=== PATIENT | female | born 1940 | race Caucasian/White ===

== ENCOUNTER → 2017-02-07 | Outpatient (CLI) | payer MEDICARE, MEDICAID | LOC: OD 10:44 | PROVIDERS: ATTEND Internal Medicine | DX: R60.0 Localized edema (principal); R06.00 Dyspnea, unspecified; I35.8 Other nonrheumatic aortic valve disorders; I10 Essential (primary) hypertension; R01.1 Cardiac murmur, unspecified; I34.0 Nonrheumatic mitral (valve) insufficiency; E66.9 Obesity, unspecified; Z79.899 Other long term (current) drug therapy | CPT/HCPCS: 36415; 83880 ==

== ENCOUNTER → 2017-02-18 | Outpatient (CLI) | payer MEDICARE, MEDICAID ==
--- NOTE | 2017-02-18 12:09 | XCELERA REPORT ---
[address] [address] Lower Extremity Venous Evaluation Name: DAVID LEAVITT Age: 77 yrs Gender: Female : 1940 Patient Status: Outpatient Patient Location: Study Date: 02/18/2017 09:16 AM Procedure: Color flow and duplex imaging bilaterally of the veins of the lower extremities as well as the Common Femoral veins. Reason For Study: DVT Z86.718 Ordering Physician: NEEMA RAMIREZ Performed By: Pérez Shields Right Sided Venous Evaluation Normal vessel filling wall to wall, compression and augmentation as well as Colour flow down to the infrageniculate veins. Left Sided Venous Evaluation Normal vessel filling wall to wall, compression and augmentation as well as Colour flow down to the infrageniculate veins. Interpretation Summary No duplex evidence of DVT or obstruction in the bilateral lower extremities. : NEEMA RAMIREZ > Lux De Leon
== END ==
LOC: SP 08:51
PROVIDERS: ATTEND Specialist
DX: Z86.718 Personal history of other venous thrombosis and embolism (principal)
CPT/HCPCS: 93970

== ENCOUNTER → 2017-04-20 | Outpatient (CLI) | payer MEDICARE, MEDICAID ==
[2017-04-20 09:14] LABS: ARTERIAL BLOOD O2 SATURATION 95.9 % (94-98)
== END ==
LOC: OD 08:04
PROVIDERS: ATTEND Internal Medicine Pulmonary Disease
DX: J96.11 Chronic respiratory failure with hypoxia (principal)
CPT/HCPCS: 36600; 82803

== ENCOUNTER 2017-09-18 07:03 | Day surgery (SDC) | payer MEDICARE, MEDICAID ==
[~2017-09-18 07:03] MED LIST: KETOROLAC TROMETHAMINE 0.45% 4 DROP/0.4 ML DROPERETTE OS PRN
[2017-09-18] MEDS ORDERED: EPINEPHRINE INJ/PF 1 MG/1 ML AMPULE ONE (07:15)
[2017-09-18] MEDS ORDERED: TOBRAMYCIN SULFATE/DEXAMETH OPH OINTMENT 3.5 GM ONE (07:16)
[2017-09-18] MEDS ORDERED: CHONDR SU A NA/HYALUR INTRAOC KIT (SURGICARE) ONE (07:16)
[2017-09-18] MEDS ORDERED: LIDOCAINE 1% INJ-PF (10 MG/ML) 30 ML SDV ONE (07:16)
[2017-09-18] MEDS: CYCLOPENTOLATE 0.2%/PHENYLEPHRINE 1% OPH SOLN 2 ML OS PRN ×3 (07:46→08:06)
[2017-09-18] MEDS: TROPICAMIDE 1% OPH SOLN 3 ML OS PRN ×3 (07:46→08:06)
[2017-09-18] MEDS: BESIFLOXACIN HCL 0.6% OPH SUSP 5 ML BOTTLE OS PRN ×3 (07:46→08:31)
[2017-09-18] MEDS: TETRACAINE HCL 0.5% OPH SOLN 0.6 ML DROPERETTE OS PRN ×3 (07:47→08:20)
[2017-09-18] MEDS ORDERED: MIDAZOLAM 2 MG/2 ML INJ ONE (07:58)
[2017-09-18] MEDS ORDERED: FENTANYL CITRATE INJ/PF 100 MCG/2 ML AMPUL ONE (07:59)
== END 2017-09-18 09:15 | disposition home or self-care (01) ==
LOC: SC 07:03
PROVIDERS: ATTEND Ophthalmology
PROC: 08RK3JZ Replacement of Left Lens with Synthetic Substitute, Percutaneous Approach (ICD-10-PCS; principal; 2017-09-18 08:15)
DX: H25.12 Age-related nuclear cataract, left eye (principal); I10 Essential (primary) hypertension; J43.9 Emphysema, unspecified; Z79.899 Other long term (current) drug therapy
CPT/HCPCS: 66984; V2632; J2250; J3490 ×3; A9270; J0171; J3010; 142

== ENCOUNTER → 2018-03-31 | Outpatient (CLI) | payer MEDICARE, MEDICAID ==
[2018-04-01 16:39] LABS: CYTOPLASMIC (C-ANCA) <1:20 titer (Neg:<1:20)
[2018-04-02 07:48] LABS: ATYPICAL PANCA <1:20 titer (Neg:<1:20); PERINUCLEAR (P-ANCA) <1:20 titer (Neg:<1:20)
[2018-04-02 11:40] LABS: ANTICHROMATIN AB <0.2 AI (0.0-0.9); CENTROMERE B AB <0.2 AI (0.0-0.9); JO-1 ANTIBODY (ANACOMP) <0.2 AI (0.0-0.9); RNP AB <0.2 AI (0.0-0.9); SCLERODERMA-70 ANTIBODIES <0.2 AI (0.0-0.9); SJOGREN'S ANTI-SS-B AB <0.2 AI (0.0-0.9); SJOGREN'S SS-A ANTIBODY <0.2 AI (0.0-0.9); SMITH AB ANA <0.2 AI (0.0-0.9)
[2018-04-02 11:43] LABS: DNA DOUBLE STRAND ANTIBODY ANA <1 IU/mL (0-9)
== END ==
LOC: OD 11:17
PROVIDERS: ATTEND Physician Assistant
DX: R06.00 Dyspnea, unspecified (principal)
CPT/HCPCS: 36415; 86021; 86225; 86235; 86430

== ENCOUNTER 2018-07-21 05:18 | Emergency (ER) | payer MEDICARE, MEDICAID ==
--- NOTE | 2018-07-21 06:00 | RADIOLOGY REPORT (SQ) ---
EXAM DESCRIPTION: XR CHEST 1 VIEW COMPLETED DATE/TME: 07/21/2018 05:21 CLINICAL HISTORY: 78 years, Female, cp COMPARISON: None. NUMBER OF VIEWS: One TECHNIQUE: AP view of the chest LIMITATIONS: None. FINDINGS: Lungs are clear. The heart is normal in size. There is no pneumothorax or pleural effusion. There is no acute fracture IMPRESSION: No acute cardiopulmonary abnormality 2010 [employer]- All Rights Reserved
[2018-07-21 06:54] LABS: ABSOLUTE LYMPHOCYTES (AUTO) 0.8 10^3/uL (0.5-4.7); ABSOLUTE MONOCYTES (AUTO) 0.4 10^3/uL (0.1-1.4); ABSOLUTE NEUT (AUTO) 6.7 10^3/uL (1.7-8.2); BASOPHILS % (AUTO) 0.3 % (0-2); EOSINOPHILS % (AUTO) 0.1 % (0-6); HEMATOCRIT 42.1 % (36.0-47.0); LYMPHOCYTES % (AUTO) 10.4 % (13-45); MEAN CORPUSCULAR HEMOGLOBIN 30.5 pg (27.0-33.4); MEAN CORPUSCULAR HGB CONC 33.3 g/dL (32.0-36.0); MEAN CORPUSCULAR VOLUME 92 fl (80-97); MONOCYTES % (AUTO) 4.6 % (3-13); PLATELET COUNT 204 10^3/uL (150-450); RED BLOOD COUNT 4.59 10^6/uL (3.72-5.28); SEGMENTED NEUTROPHILS % (AUTO) 84.6 % (42-78); TOTAL CELLS COUNTED % (AUTO) 100 %; WHITE BLOOD COUNT 7.9 10^3/uL (4.0-10.5)
[2018-07-21] MEDS ORDERED: METOCLOPRAMIDE HCL ORAL SOLN 10 MG/10 ML UDCUP PO ONE (06:57)
[2018-07-21] MEDS ORDERED: MAG HYDROX/AL HYDROX/SIMETH SUSP 30 ML UDCUP PO ONE (06:57)
[2018-07-21] MEDS ORDERED: LIDOCAINE 2% VISCOUS SOLN 20 ML UDCUP PO ONE (06:57)
--- NOTE | 2018-07-21 07:01 | ER Document Report ---
ED Cardiac - General Chief Complaint: Chest Pain Stated Complaint: CHEST PAIN Time Seen by Provider: 07/21/18 06:08 Notes: 78-year-old female presents emerged from some epigastric discomfort that started yesterday. She describes as like a dull burning aching discomfort in her epigastrium that radiates up into her chest. She states she was eating yesterday at about 2 PM and that is when it began she denies shortness of breath had a little bit of nausea had one episode of emesis. Denied any diaphoresis. Denied any headache or blurred vision denied extremity numbness tingling or weakness. Denies any diarrhea or constipation. Nothing seemed to make it better or worse. TRAVEL OUTSIDE OF THE [place] IN LAST 30 DAYS: No - Related Data Allergies/Adverse Reactions: acetaminophen [From Percocet] Allergy (Verified 09/18/17 07:56) cephalexin monohydrate [From Keflex] Allergy (Verified 09/18/17 07:56) oxycodone HCl [From Percocet] Allergy (Verified 09/18/17 07:56) Past Medical History - Social History Smoking Status: Never Smoker Family History: Reviewed & Not Pertinent Patient has suicidal ideation: No Patient has homicidal ideation: No - Past Medical History Cardiac Medical History: Reports: Hx Hypertension Denies: Hx Heart Attack Pulmonary Medical History: Reports: Hx Asthma Neurological Medical History: Denies: Hx Cerebrovascular Accident, Hx Seizures Renal/ Medical History: Denies: Hx Peritoneal Dialysis GI Medical History: Denies: Hx Hepatitis, Hx Hiatal Hernia, Hx Ulcer Infectious Medical History: Denies: Hx Hepatitis Past Surgical History: Reports: Hx Appendectomy, Hx Gynecologic Surgery, Hx Tonsillectomy, Hx Tubal Ligation. Denies: Hx Mastectomy, Hx Open Heart Surgery , Hx Pacemaker - Immunizations Hx Diphtheria, Pertussis, Tetanus Vaccination: Yes - over 10 years ago Review of Systems - Review of Systems Gastrointestinal: Nausea, Vomiting. denies: Diarrhea, Constipation Musculoskeletal: denies: Back pain Skin: denies: Other -: Yes All other systems reviewed and negative Physical Exam - Vital signs Vitals: Pulse Ox 96 07/21/18 05:40 - Notes Notes: GENERAL_APPEARANCE: well_nourished, alert, cooperative VITALS: reviewed, see vital signs table. HEAD: no_swelling\tenderness on the head. EYES: PERRL, EOMI, conjunctiva_clear. NOSE: no_nasal_discharge. MOUTH: (-)decreased moisture. THROAT: no_tonsilar_inflammation, no_airway_obstruction. no_lymphadenopathy NECK: supple, no_neck_tenderness, (-)thyromegaly. BACK: no_back_tenderness. CHEST_WALL: no_chest_tenderness. LUNGS: no_wheezing, no_rales, no_rhonchi, (-)accessory muscle use, good air exchange bilateral. HEART: normal_rate, normal_rhythm, slight systolic ejection murmur ABDOMEN: normal_BS, soft, epigastric_abd_tenderness, (-)guarding, (-)rebound, no_organomegaly, no_abd_masses. EXTREMITIES: good pulses in all_extremities, no_swelling\tenderness in the extremities, 1+_edema. SKIN: warm, dry, good_color, no_rash. MENTAL_STATUS: speech_clear, oriented_X_3, normal_affect, responds_ appropriately to questions. Course - Re-evaluation Re-evalutation: 07/21/18 07:00 78-year-old female presents with some epigastric discomfort. It does radiate up into her chest we will give her a GI cocktail will get a EKG we will check some enzymes. She has no history of heart disease. The patient stated it began after she was eating yesterday she does not have a sensation of something was stuck in her throat. Denies calf pain or leg swelling. Denies fever chills cough or sore throat. Denies rash hematuria or dysuria 07/21/18 07:01 We will work the patient up for cardiac withdrawal lipase in case this is pancreatitis this may just be reflux type symptoms. 07/21/18 11:41 Patient has had serial troponins 4 hours apart are negative. Patient did feel better after GI cocktail. I think this is likely GI related. Patient does have some risk factors but my suspicion is low at this time I spoke with her about this we have had social service investigate this she is littered with bedbugs. The patient will be discharged back home and we have engage social sciences department chair. - Vital Signs Vital signs: Temp Pulse Resp BP Pulse Ox 97.7 F 20 156/74 H 98 07/21/18 06:34 07/21/18 11:01 07/21/18 11:01 07/21/18 11:01 - Laboratory Result Diagrams: 07/21/18 06:30 07/21/18 06:30 Laboratory results interpreted by me: 07/21/18 07/21/18 06:30 06:30 Seg Neutrophils % 84.6 H Lymphocytes % 10.4 L BUN 22 H Glucose 153 H - EKG Interpretation by Me EKG shows normal: Sinus rhythm Rate: Normal Rhythm: NSR When compared to previous EKG there are: No significant change Discharge - Discharge Clinical Impression: GERD with esophagitis Condition: Good Disposition: HOME, SELF-CARE Instructions: Reflux Disease (GERD) ([facility]) Additional Instructions: Please limit to your diet and non-spicy foods. Please follow-up with your doctor for further care as we have discussed no test is ever 100% if he began having more difficulty more problems please return to the ER immediately and let us reevaluate you. Prescriptions: Pantoprazole Sodium [Protonix] 40 mg PO DAILY #30 tablet. Sucralfate [Carafate 1 gm Tablet] 1 gm PO ACHS #30 tablet Referrals: JANESSA STEVENS, PAAnupama [Primary Care Provider] - Follow up as needed
[2018-07-21 07:05] LABS: ALANINE AMINOTRANSFERASE 22 U/L (9-52); ALKALINE PHOSPHATASE 105 U/L (38-126); ANION GAP 12 (5-19); ASPARTATE AMINO TRANSFERASE 25 U/L (14-36); BILIRUBIN,DIRECT 0.4 mg/dL (0.0-0.4); BLOOD UREA NITROGEN 22 mg/dL (7-20); CARBON DIOXIDE 26 mmol/L (22-30); CHLORIDE 100 mmol/L (98-107); CREATINE KINASE 30 U/L (30-135); GLUCOSE 153 mg/dL (75-110); POTASSIUM 4.1 mmol/L (3.6-5.0); SODIUM 137.6 mmol/L (137-145); TOTAL PROTEIN 7.9 g/dL (6.3-8.2)
[2018-07-21 07:20] LABS: TROPONIN I < 0.012 ng/mL
--- NOTE | 2018-07-21 07:53 | EKG REPORT ---
SEVERITY:- BORDERLINE ECG - SINUS RHYTHM PROBABLE LEFT ATRIAL ABNORMALITY BORDERLINE T ABNORMALITIES, DIFFUSE LEADS : Confirmed by: Raad Crockett MD 21-Jul-2018 07:52:35
[2018-07-21 13:56] VITALS: BP 156/74
== END 2018-07-21 12:30 | disposition home or self-care (01) ==
LOC: ER 05:18
DX: K21.0 Gastro-esophageal reflux disease with esophagitis (principal); R07.9 Chest pain, unspecified; R10.13 Epigastric pain; I10 Essential (primary) hypertension; Z88.6 Allergy status to analgesic agent; Z98.51 Tubal ligation status
CPT/HCPCS: 93005; 99285; 36415; 82553; 82550; 83690; 85025; 80053; 84484; 71045; 93010; J3490; A9270

== ENCOUNTER 2018-10-09 08:36 | Day surgery (SDC) | payer MEDICARE, MEDICAID ==
[2018-10-06 10:03] LABS: HEMATOCRIT 40.8 % (36.0-47.0); HEMOGLOBIN 13.8 g/dL (12.0-15.5); MEAN CORPUSCULAR HEMOGLOBIN 30.5 pg (27.0-33.4); MEAN CORPUSCULAR HGB CONC 33.8 g/dL (32.0-36.0); MEAN CORPUSCULAR VOLUME 90 fl (80-97); PLATELET COUNT 226 10^3/uL (150-450); RED BLOOD COUNT 4.51 10^6/uL (3.72-5.28); RED CELL DISTRIBUTION WIDTH 13.9 % (11.5-14.0); WHITE BLOOD COUNT 5.1 10^3/uL (4.0-10.5)
[2018-10-06 10:26] LABS: ALANINE AMINOTRANSFERASE 13 U/L (9-52); ALKALINE PHOSPHATASE 91 U/L (38-126); AMYLASE 66 U/L (30-110); ANION GAP 9 (5-19); ASPARTATE AMINO TRANSFERASE 19 U/L (14-36); BILIRUBIN,DIRECT 0.2 mg/dL (0.0-0.4); BILIRUBIN,TOTAL 0.6 mg/dL (0.2-1.3); BLOOD UREA NITROGEN 32 mg/dL (7-20); CALCIUM 9.6 mg/dL (8.4-10.2); CARBON DIOXIDE 29 mmol/L (22-30); CHLORIDE 104 mmol/L (98-107); GLUCOSE 96 mg/dL (75-110); POTASSIUM 4.2 mmol/L (3.6-5.0); TOTAL PROTEIN 7.8 g/dL (6.3-8.2)
--- NOTE | 2018-10-06 10:51 | RADIOLOGY REPORT (SQ) ---
EXAM DESCRIPTION: CHEST PA/LATERAL COMPLETED DATE/TIME: 10/06/2018 10:08 am REASON FOR STUDY: PRE-OP COMPARISON: 07/21/2018. EXAM PARAMETERS: NUMBER OF VIEWS: two views TECHNIQUE: Digital Frontal and Lateral radiographic views of the chest acquired. RADIATION DOSE: NA LIMITATIONS: none FINDINGS: LUNGS AND PLEURA: No opacities, masses or pneumothorax. No pleural effusion. MEDIASTINUM AND HILAR STRUCTURES: No masses or contour abnormalities. HEART AND VASCULAR STRUCTURES: Heart normal size. No evidence for failure. BONES: No acute findings. HARDWARE: None in the chest. OTHER: No other significant finding. IMPRESSION: NO SIGNIFICANT RADIOGRAPHIC FINDING IN THE CHEST. TECHNICAL DOCUMENTATION: JOB ID: [id number] [employer]- All Rights Reserved Reading location - IP/workstation name: [email or web address]
--- NOTE | 2018-10-06 16:35 | EKG REPORT ---
SEVERITY:- NORMAL ECG - SINUS RHYTHM : Confirmed by: Sandra Hays MD 06-Oct-2018 16:34:14
[~2018-10-09 08:36] MED LIST changes: +ACETAMINOPHEN 1,000 MG/100 ML RTUPB IV ONE; +ACETAMINOPHEN 325 MG TABLET PO PRN; +CEFAZOLIN 1 GM/D5W RTU 1 GM/50 ML RTUPB IV PRN; +CLINDAMYCIN 900 MG/D5W RTU 900 MG/50 ML RTUPB IV PRN; +FENTANYL CITRATE INJ/PF 100 MCG/2 ML AMPUL ONE; -KETOROLAC TROMETHAMINE 0.45% 4 DROP/0.4 ML DROPERETTE OS PRN; +LACTATED RINGERS 1000 ML IV PRN; +LIDOCAINE 0.5% INJ-PF (5 MG/ML) 50 ML SDV SUBCUT PRN; +MIDAZOLAM 2 MG/2 ML INJ ONE; +PROPOFOL INJ 200 MG/20 ML VIAL IV ONE
[2018-10-09] MEDS ORDERED: BUPIVACAINE HCL 0.25% /EPINEPHRINE INJ/PF 30 ML SDV ONE (08:37)
[2018-10-09] MEDS ORDERED: CLINDAMYCIN 900 MG/D5W RTU 900 MG/50 ML RTUPB IV ONE (09:01)
[2018-10-09] MEDS ORDERED: MORPHINE SULFATE 10 MG/ML INJ IV PRN ×2 (10:29→17:49)
[2018-10-09] MEDS ORDERED: MEPERIDINE HCL/PF INJ 25 MG/1 ML DISP.SYRIN IV PRN (10:29)
[2018-10-09] MEDS ORDERED: DIPHENHYDRAMINE HCL 50 MG/ML VIAL IV PRN (10:29)
[2018-10-09] MEDS ORDERED: PROMETHAZINE HCL INJ 25 MG/1 ML VIAL IV PRN (10:29)
[2018-10-09] MEDS ORDERED: FENTANYL CITRATE INJ/PF 100 MCG/2 ML AMPUL IV PRN ×3 (10:29)
--- NOTE | 2018-10-09 12:03 | Operative Report ---
Operative Report DATE OF SURGERY: 10/09/18 - lap sven Operative Report: Brought to the operating room in awake and alert in stable condition placed in the upper table supine position and induced under general anesthesia and intubated There is needle was placed through the umbilicus and the abdomen was insufflated with 6 L of CO2 gas Umbilical incision was made with a 15 blade and a 10 mm port placed into the infraumbilical incision Abdominal visualization revealed no evidence of a varies needle or trocar injury . The gallbladder was markedly chronically inflamed large area of omentum that was adhesed to the gallbladder and the gallbladder fundus itself was adhesed to the duodenum upon dissecting away the duodenum we noted we got into the loculated area of purulent fluid. Suctioned dry. 5 mm ports were placed in under direct vision. Bladder was placed under traction and the hepatoduodenal ligament was isolated the duct and cystic artery were both dissected from the hepatoduodenal ligament and the cystic artery was doubly clipped on the stay side and one specimen side and divided the cystic artery was just divided as off the neck of the gallbladder because it was quite short. Gallbladder was then dissected out of the liver bed with Bovie cautery and sharp dissection. We then identified the cystic duct stump we placed a cholangiogram catheter into it and obtained an intraoperative cholangiogram intraoperative conjunctiva showed good flow into the duodenum hepatic duct and bile duct were both identified and intact as was the right and left hepatic ducts. Endoloop was then placed on the cystic duct stump. Quadrant was then copiously irrigated with normal saline and suctioned dry. A Eugenio-Bernard drain was pleasant placed in the gallbladder site and brought out through a stab wound in the right upper quadrant. Confirming good hemostasis the pneumoperitoneum was reduced we closed the infraumbilical incision site with a [id number] placed 0 Vicryl suture and all 4 skin incisions were closed with intracuticular 4-0 Rapide suture. Dressings were applied. She was returned to recovery in stable condition. EBL 100 cc under needle counts correct x2 and specimen was the gallbladder PREOPERATIVE DIAGNOSIS: cholecystectomy POSTOPERATIVE DIAGNOSIS: perforated cholecystitis. OPERATION: laparoscopic cholecytectomy. SURGEON: TIANA LAM ANESTHESIA: GA TISSUE REMOVED OR ALTERED: gallbladder COMPLICATIONS: none ESTIMATED BLOOD LOSS: 100cc INTRAOPERATIVE FINDINGS: perforated cholecystits
--- NOTE | 2018-10-09 12:09 | RADIOLOGY REPORT (SQ) ---
EXAM DESCRIPTION: CHOLANGIOGRAM OPERATIVE; NO CHG FLUORO COMPLETED DATE/TIME: 10/09/2018 12:01 pm REASON FOR STUDY: CHOLANGIOGRAM IN OR R10.11 RIGHT UPPER QUADRANT PAIN Z79.01 [employer]ER (CURRENT) USE OF ANTICOAGULANTS COMPARISON: None. FLUOROSCOPY TIME: 0.3 minutes 1 series of digital radiographic images saved to PACS. TECHNIQUE: Cinegraphic images were obtained from an intraoperative cholangiogram. LIMITATIONS: None. FINDINGS: There is opacification of the bile ducts, cystic duct remnants and second portion of the d uodenum without evidence of fixed filling defect or significant extravasation. IMPRESSION: INTRAOPERATIVE CHOLANGIOGRAM. COMMENT: Quality ID 145: Final reports for procedures using fluoroscopy that document radiation exp osure indices, or exposure time and number of fluorographic images (if radiation exposure indices are not available) TECHNICAL DOCUMENTATION: JOB ID: [id number] [employer]- All Rights Reserved Reading location - IP/workstation name: [email or web address]
--- NOTE | 2018-10-09 12:09 | RADIOLOGY REPORT (SQ) ---
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 FLUOROSCOPY TIME: 0.3 minutes 1 series of digital radiographic images saved to PACS. TECHNIQUE: Cinegraphic images were obtained from an intraoperative cholangiogram. LIMITATIONS: None. FINDINGS: There is opacification of the bile ducts, cystic duct remnants and second portion of the d uodenum without evidence of fixed filling defect or significant extravasation. IMPRESSION: INTRAOPERATIVE CHOLANGIOGRAM. COMMENT: Quality ID 145: Final reports for procedures using fluoroscopy that document radiation exp osure indices, or exposure time and number of fluorographic images (if radiation exposure indices are not available) TECHNICAL DOCUMENTATION: JOB ID: [id number] [employer]- All Rights Reserved Reading location - IP/workstation name: [email or web address]
[2018-10-09] MEDS: FENTANYL CITRATE INJ/PF 100 MCG/2 ML AMPUL ONE ×2 (12:18→12:23)
[2018-10-09] MEDS ORDERED: KETOROLAC TROMETHAMINE INJ/PF 30 MG/1 ML SDV ONE (12:34)
[2018-10-09] MEDS ORDERED: TRAMADOL HCL 50 MG TABLET ONE (13:30)
[2018-10-09] MEDS ORDERED: ROCURONIUM BROMIDE INJ 50 MG/5 ML VIAL IV ONE (16:30)
[2018-10-09] MEDS ORDERED: GLYCOPYRROLATE 1 MG/5 ML SYRINGE ONE (16:30)
[2018-10-09] MEDS ORDERED: SUCCINYLCHOLINE CHLORIDE INJ 200 MG/10 ML VIAL ONE (16:30)
[2018-10-09] MEDS ORDERED: DEXAMETHASONE SOD PHOSPHATE INJ 4 MG/1 ML VIAL ONE (16:30)
[2018-10-09] MEDS ORDERED: ONDANSETRON HCL INJ/PF 4 MG/2 ML SDV ONE (16:30)
[2018-10-09] MEDS ORDERED: CEFAZOLIN 1 GM/D5W RTU 1 GM/50 ML RTUPB IV SCH (18:00)
[2018-10-09] MEDS: HYDROCODONE/ACETAMINOPHEN 5-325 MG TABLET PO PRN (19:22)
[2018-10-09] MEDS: METRONIDAZOLE 500 MG/NS RTU 500 MG/100 ML RTUPB IV SCH (21:20)
[2018-10-10] MEDS: METRONIDAZOLE 500 MG/NS RTU 500 MG/100 ML RTUPB IV SCH ×3 (05:15→21:06)
--- NOTE | 2018-10-10 08:02 | PDOC PROGRESS REPORT ---
Subjective Progress Note for:: 10/10/18 Reason For Visit: R10.11 RIGHT UPPER QUADRANT PAIN Physical Exam Vital Signs: Temp Pulse Resp BP Pulse Ox 98.2 F 69 20 123/60 94 10/10/18 04:05 10/10/18 04:05 10/10/18 04:05 10/10/18 04:05 10/10/18 04:05 Intake & Output 10/09/18 10/10/18 10/11/18 06:59 06:59 06:59 Intake Total 4270 Output Total 1665 Balance 2605 Weight 83.91 kg GI/Abdominal exam: PRESENT: soft - soft non, sl tender in ruq zainab with min serous fluid Results Laboratory Results: 10/06/18 09:17 10/09/18 09:34 10/09/18 09:34 Potassium 4.1 Impressions: Chest X-Ray 10/06/18 10:01 IMPRESSION: NO SIGNIFICANT RADIOGRAPHIC FINDING IN THE CHEST. Cholangiogram 10/09/18 00:00 IMPRESSION: INTRAOPERATIVE CHOLANGIOGRAM. Fluoroscopy 10/09/18 00:00 IMPRESSION: INTRAOPERATIVE CHOLANGIOGRAM. Assessment & Plan - Plan Summary Plan Summary: pt unsure if she can vale being home as yet disucssed discharge with home health will check back later and dc if pt desires otherwise, prob home in am lft, and cbc pending
[2018-10-10] MEDS ORDERED: IBUPROFEN 800 MG TABLET ONE (08:22)
[2018-10-10] MEDS: HYDROCODONE/ACETAMINOPHEN 5-325 MG TABLET PO PRN ×2 (08:27→19:13)
[2018-10-11] MEDS: METRONIDAZOLE 500 MG/NS RTU 500 MG/100 ML RTUPB IV SCH (05:31)
[2018-10-11] MEDS: HYDROCODONE/ACETAMINOPHEN 5-325 MG TABLET PO PRN (06:18)
--- NOTE | 2018-10-11 08:14 | PDOC PROGRESS REPORT ---
Subjective Progress Note for:: 10/11/18 Reason For Visit: R10.11 RIGHT UPPER QUADRANT PAIN Physical Exam Vital Signs: Temp Pulse Resp BP Pulse Ox 97.2 F 77 18 138/64 H 94 10/11/18 04:32 10/11/18 04:32 10/11/18 04:32 10/11/18 04:32 10/11/18 04:32 Intake & Output 10/10/18 10/11/18 10/12/18 06:59 06:59 06:59 Intake Total 4270 1200 Output Total 1665 2750 Balance 2605 -1550 Weight 83.91 kg GI/Abdominal exam: PRESENT: ascites, distended, firm, guarding, hernia, hyperactive bowel sounds, hypoactive bowel sounds, mass, Ramos's sign, normal bowel sounds, organolmegaly, rebound, rigid, soft - post op day 2 pt abd soft vale reg diet norm bowel sounds, tenderness, other. ABSENT: diminished bowel sounds Results Laboratory Results: 10/06/18 09:17 10/09/18 09:34 Impressions: Chest X-Ray 10/06/18 10:01 IMPRESSION: NO SIGNIFICANT RADIOGRAPHIC FINDING IN THE CHEST. Cholangiogram 10/09/18 00:00 IMPRESSION: INTRAOPERATIVE CHOLANGIOGRAM. Fluoroscopy 10/09/18 00:00 IMPRESSION: INTRAOPERATIVE CHOLANGIOGRAM. Assessment & Plan - Plan Summary Plan Summary: pt pod 2 post lap sven doing well vale diet ready for dc home today. will dc drain prior to discharge.
--- NOTE | 2018-10-11 08:15 | Discharge Summary ---
Discharge Summary (SDC) - Discharge Final Diagnosis: acute on chronic cholecystitis Date of Surgery: 10/09/18 - lap sven Discharge Date: 10/11/18 Condition: Good Forms: ASU Anesthesia D/C Instruction Referrals: TIANA LAM MD [ACTIVE STAFF] - Discharge Diet: As Tolerated Discharge Activity: Activity As Tolerated, No Lifting Over 10 Pounds Home Care Assistance: None Needed Adaptive Devices on Discharge: Standard Walker Report the Following to Your Physician Immediately: Nausea, Vomiting, Increase in Pain, Fever over 101 Degrees, Unusual Bleeding - pt needs a f/u appoint at [facility] in 7-10 days.
[2018-10-11 09:34] VITALS: BP 135/59
== END 2018-10-11 12:25 | disposition home or self-care (01) ==
LOC: OROUT 08:36 → 2N 16:37 → OROUT 10-11 12:25
PROVIDERS: ATTEND Surgery
DX: K80.12 Calculus of gallbladder with acute and chronic cholecystitis without obstruction (principal); J98.3 Compensatory emphysema; R01.1 Cardiac murmur, unspecified; M19.90 Unspecified osteoarthritis, unspecified site; I10 Essential (primary) hypertension; Z79.01 Long term (current) use of anticoagulants; Z99.81 Dependence on supplemental oxygen; Z79.51 Long term (current) use of inhaled steroids; Z79.899 Other long term (current) drug therapy
CPT/HCPCS: 93005; 86900; 86901; 36415 ×2; 86850; 82150; 84132; 85027; 80076; 80048; 88304 ×2; 71046; 74300; 93010; 47563; J2250; J3490 ×3; J1100; J3010; J1885; J2270; J0330; J2405; J7120; J2704; A9270 ×4; J0131; 790

== ENCOUNTER → 2020-01-07 | Outpatient (CLI) | payer MEDICARE, MEDICAID ==
[2020-01-07 15:20] LABS: ABSOLUTE EOSINOPHILS # (AUTO) 0.1 10^3/uL (0.0-0.6); ABSOLUTE LYMPHOCYTES (AUTO) 1.1 10^3/uL (0.5-4.7); ABSOLUTE MONOCYTES (AUTO) 0.3 10^3/uL (0.1-1.4); ABSOLUTE NEUT (AUTO) 4.1 10^3/uL (1.7-8.2); BASOPHILS % (AUTO) 0.6 % (0-2); EOSINOPHILS % (AUTO) 1.2 % (0-6); HEMATOCRIT 41.5 % (36.0-47.0); HEMOGLOBIN 14.3 g/dL (12.0-15.5); LYMPHOCYTES % (AUTO) 20.1 % (13-45); MEAN CORPUSCULAR HEMOGLOBIN 31.1 pg (27.0-33.4); MEAN CORPUSCULAR HGB CONC 34.5 g/dL (32.0-36.0); MEAN CORPUSCULAR VOLUME 90 fl (80-97); MONOCYTES % (AUTO) 5.5 % (3-13); PLATELET COUNT 218 10^3/uL (150-450); RED CELL DISTRIBUTION WIDTH 13.8 % (11.5-14.0); SEGMENTED NEUTROPHILS % (AUTO) 72.6 % (42-78); TOTAL CELLS COUNTED % (AUTO) 100 %; WHITE BLOOD COUNT 5.6 10^3/uL (4.0-10.5)
[2020-01-07 15:42] LABS: BLOOD UREA NITROGEN 32 mg/dL (7-20)
== END ==
LOC: OD 14:39
PROVIDERS: ATTEND Internal Medicine Pulmonary Disease
DX: R09.02 Hypoxemia (principal)
CPT/HCPCS: 36415; 82565; 84520; 85025

== ENCOUNTER → 2020-01-07 | Outpatient (CLI) | payer MEDICARE, MEDICAID ==
--- NOTE | 2020-01-07 15:22 | RADIOLOGY REPORT (SQ) ---
EXAM DESCRIPTION: CTA CHEST IMAGES COMPLETED DATE/TIME: 01/07/2020 2:23 pm REASON FOR STUDY: J84.9 INTERSTITIAL PULMONARY DISEASE, UNSPECIFIED J84.9 INTERSTITIAL PULMONARY DI SEASE, UNSPECIFIED R09.02 HYPOXEMIA COMPARISON: Two-view chest 10/06/2018 TECHNIQUE: CT scan of the chest performed using helical scanning technique with dynamic intravenous contrast injection. Images reviewed with lung, soft tissue and bone windows. Reconstructed coronal and sagittal MPR images reviewed. Additional 3 dimensional post-processing performed to develop Maximal Intensity Projection images (VA P). All images stored on PACS. All CT scanners at this facility use dose modulation, iterative reconstruction, and/or weight based d osing when appropriate to reduce radiation dose to as low as reasonably achievable (ALARA). [facility]: Dose Right [facility]: CareDose [facility]: Dose Right [facility]: Teradose 4D [facility]: Promimic CONTRAST TYPE AND DOSE: contrast/concentration: Isovue 350.00 mg/ml; Total Contrast Delivered: 57.0 ml; Total Saline Delivered: 80.0 ml Contrast bolus adequate for pulmonary arteries and aorta. RENAL FUNCTION: Creatinine 0.9 RADIATION DOSE: CT Rad equipment meets quality standard of care and radiation dose reduction techniq ues were employed. CTDIvol: 7.5 - 12.0 mGy. DLP: 441 mGy-cm. . LIMITATIONS: None. FINDINGS: LUNGS AND PLEURA: Diffuse ground-glass opacity is present throughout both upper lobes, non specific. Calcified granuloma right posterior costophrenic sulcus. Minimal thickening of interlobular septa around the periphery of both lung bases, nonspecific. Minimal scarring right middle lobe No pleural effusions. No pleural calcifications. Pneumothorax. AORTA AND GREAT VESSELS: No aneurysm. No dissection. HEART: No pericardial effusion. No significant coronary artery calcifications. PULMONARY ARTERIES: No emboli visualized in the main pulmonary arteries or the segmental branches. HILAR AND MEDIASTINAL STRUCTURES: Old calcified right hilar lymph node, unchanged from chest film 201 8. HARDWARE: None in the chest. UPPER ABDOMEN: No significant findings. Limited exam. THYROID AND OTHER SOFT TISSUES: No masses. No adenopathy. BONES: Chronic T4 upper endplate compression 3D MIPS: Confirm above findings. OTHER: No other significant finding. IMPRESSION: No CT angio evidence of thoracic aortic dissection or acute pulmonary emboli Diffuse patchy ground-glass opacifications, abnormal but nonspecific Evidence of old granulomatous disease COMMENT: Quality ID # [id number]: Final reports with documentation of one or more dose reduction techniques (e.g., Automated exposure control, adjustment of the mA and/or kV according to patient size, use of iterative reconstruction technique) TECHNICAL DOCUMENTATION: JOB ID: [id number] 2010 [employer]- All Rights Reserved Reading location - IP/workstation name: [email or web address]
== END ==
LOC: RAD 13:33
PROVIDERS: ATTEND Internal Medicine Pulmonary Disease
DX: J84.9 Interstitial pulmonary disease, unspecified (principal); R09.02 Hypoxemia
CPT/HCPCS: 71275; 82565

== ENCOUNTER → 2020-01-07 | Outpatient (CLI) | payer MEDICARE, MEDICAID ==
--- NOTE | 2020-01-07 13:18 | ER RDC ASSESSMENT REPORT ---
Intake - In the Last 14 days Have you traveled outside [place]?: No Have you been in close contact with someone CONFIRMED: No Worked in Healthcare?: No - Symptoms Subjective Fever(Cascade feverish): No Chills: No Muscule Aches: No Runny Nose: No Sore Throat: No Cough (New or worsening chronic cough): Yes Shortness of breath: Yes Nausea or Vomiting: No Headache: No Abdominal Pain: No Diarrhea(3 or more loose stools in last 24 hours): No - Do you have any of the following Chronic lung disease: Asthma or emphysema or COPD: Yes Cystic Fibrosis: No Diabetes: No High Blood Pressure: Yes Cardiovascular Disease: Yes Chronic Kidney Disease: No Chronic Liver Disease: No Chronic blood disorder like Sickle Cell Disease: No Weak immune system due to disease or medication: No Neurologic condition that limits movement: No Developmental delay - Moderate to Severe: No Recent (within past 2 weeks) or current : No - Objective Temperature: 97.2 F Pulse Rate: 91 Respiratory Rate: 20 Blood Pressure: 184/99 O2 Sat by Pulse Oximetry: 91 Objective: Given above, testing performed: If Testing Performed: Test Specimen Type Sent to General - General Information source: Patient Notes: Patient here at [facility] for Covid testing. States started having symptoms December 27, 2019. Most of the symptoms resolved after the first three days. Remains with a dry cough. Reports has a chronic cough due emphysema however this feels a little different. Reports just came here from seeing her pulmonolgist, Dr. Garber. She states he has ordered for her to have labs and a CTA at the hospital after she is done here. Patient is driving her own car, usingO2 at 2L/NC and is not in any distress. - Related Data Allergies/Adverse Reactions: cephalexin monohydrate [From Keflex] Allergy (Intermediate, Verified 10/03/18 10:11) Hives oxycodone HCl [From Percocet] Allergy (Verified 10/03/18 10:11) acetaminophen [From Percocet] Adverse Reaction (Intermediate, Verified 10/03/18 10:11) Nausea oxycodone [From Percocet] Adverse Reaction (Intermediate, Verified 10/03/18 10:11) Nausea Past Medical History - General Information source: Patient - Social History Smoking Status: Never Smoker Family History: Reviewed & Not Pertinent - Past Medical History Cardiac Medical History: Reports: Hx Hypertension Denies: Hx Coronary Artery Disease, Hx Heart Attack Pulmonary Medical History: Reports: Hx Asthma Denies: Hx Bronchitis, Hx COPD, Hx Pneumonia Neurological Medical History: Denies: Hx Cerebrovascular Accident, Hx Seizures Renal/ Medical History: Denies: Hx Peritoneal Dialysis GI Medical History: Denies: Hx Hepatitis, Hx Hiatal Hernia, Hx Ulcer Musculoskeletal Medical History: Denies Hx Arthritis Infectious Medical History: Denies: Hx Hepatitis Past Surgical History: Reports: Hx Appendectomy, Hx Gynecologic Surgery, Hx Tonsillectomy, Hx Tubal Ligation. Denies: Hx Mastectomy, Hx Open Heart Surgery, Hx Pacemaker Physical Exam - General Notes: PHYSICAL EXAMINATION: GENERAL: Well-appearing and in no acute distress. HEAD: Atraumatic, normocephalic. EYES: sclera anicteric, conjunctiva are normal. ENT: nares patent. Moist mucous membranes. NECK: Normal range of motion, supple without lymphadenopathy LUNGS: CTAB and equal. No wheezes rales or rhonchi. Resp even and unlabored. O2 at 2L in use with O2 sat 91%. Lung sounds clear. HEART: Regular rate and rhythm without murmurs ABDOMEN: Soft, nontender, normal bowel sounds, no guarding. NEUROLOGICAL: Normal speech. PSYCH: Normal mood, normal affect. SKIN: Warm, Dry, normal turgor, no rashes or lesions noted Diagnostic Results Laboratory Results: Patient instructed of negative rapid strep and negative rapid flu results. Pending strep culture. Pending COVID test resutls. Patient provided instructions regarding COVID to include: As a person under investigation for Covid 19, the [place] department of Health and Human Services, division of public health advises you to adhere to the following guidance until your test results are reported to you. If your test result is positive, you will receive additional information from your provider and your local health department at that time. Remain at home until you are cleared by the health provider or public health authorities. Keep a log of visitors to your home, notify any visitors to your home of your isolation status. If you plan to move to a new address or leave the [facility], notify the local health department in your County. Call your doctor or seek care if you have an urgent medical need. Before seeking medical care, call ahead to get instructions from the provider before arriving at the medical office clinic or hospital. Notify them that you are being tested for the virus that causes Covid 19 so that arrangements can be made, as necessary, to prevent transmission to others in the healthcare setting. Next, notify the local health department in your county. If a medical emergency arises and you need to call 911, inform the first responders that you are being tested for the virus that causes Covid 19. Next, notify the local health department in your county. Patient Education/Counseling Counseling/Education: Patient presents with upper respiratory symptoms worrisome for possible Covid 19. Patient does not have emergency worring symptoms such as difficulty breathing, shortness of breath, chest pain, pressure, confusion or cyanosis. Patient appears suitable for discharge. Patient's vital signs are stable and patient is nontoxic in appearance. Good return precautions have been discussed with patient, patient verbalized understanding and is agreeable with discharge plan of care at this time. Patient is following up with Pulmonogist with pending labs and CTA per her provider. Guidance for worsening S/SX: Patient to follow up with [facility]. To ED for worsening or persistent symptoms. RDC Discharge - Discharge Clinical Impression: Upper respiratory infection, COVID - 19 SCREENING Disposition: Home; Selfcare
[2020-01-07 13:29] VITALS: BP 184/99
[2020-01-07 13:50] LABS: A TYPE INFLUENZA AG NEGATIVE (NEGATIVE); B INFLUENZA AG NEGATIVE (NEGATIVE)
== END ==
LOC: RDC 12:04
PROVIDERS: ATTEND Registered Nurse
DX: J06.9 Acute upper respiratory infection, unspecified (principal); Z20.828 Contact with and (suspected) exposure to other viral communicable diseases; J43.9 Emphysema, unspecified; R05 Cough; R06.02 Shortness of breath; I10 Essential (primary) hypertension
CPT/HCPCS: 87070; 87880; 87804; U0003; G0463; 87635; 99211

== ENCOUNTER → 2020-10-28 | Outpatient (CLI) | payer MEDICARE, MEDICAID ==
--- NOTE | 2020-10-28 17:30 | RADIOLOGY REPORT (SQ) ---
EXAM DESCRIPTION: CT CHEST WITHOUT IMAGES COMPLETED DATE/TIME: 10/28/2020 2:26 pm REASON FOR STUDY: (R06.00)DYSPNEA, UNSPECIFIED R06.00 DYSPNEA, UNSPECIFIED COMPARISON: 01/07/2020 TECHNIQUE: CT scan performed of the chest without intravenous contrast. Images reviewed with lung, soft tissue and bone windows. Reconstructed coronal and sagittal MPR images reviewed. All images st ored on PACS. All CT scanners at this facility use dose modulation, iterative reconstruction, and/or weight based d osing when appropriate to reduce radiation dose to as low as reasonably achievable (ALARA). [facility]: Dose Right [facility]: CareDose [facility]: Dose Right [facility]: Teradose 4D [facility]: [employer] RADIATION DOSE: CT Rad equipment meets quality standard of care and radiation dose reduction techniq ues were employed. CTDIvol: 11.7 mGy. DLP: 486 mGy-cm. mGy. LIMITATIONS: No technical limitations. FINDINGS: LUNGS AND PLEURA: Trachea has normal caliber and appearance. No bronchial wall thickening or bronchiectasis. Patchy areas of gas trapping and subpleural reticulation, stable from prior. Re tained endobronchial secretions in the left lower lobe. No focal consolidation or pleural effusion. No pneumothorax. HILAR AND MEDIASTINAL STRUCTURES: Densely calcified mediastinal and right hilar lymph nodes consisten t with healed granulomatous disease. No adenopathy. No mediastinal mass. Esophagus is unremarkable . HEART AND VASCULAR STRUCTURES: No aneurysm. No pericardial effusion. UPPER ABDOMEN: Multiple calcified splenic granulomas. THYROID AND OTHER SOFT TISSUES: No masses. No adenopathy. BONES: Spondylosis and degenerative disc disease. No suspicious bone lesions. HARDWARE: None in the chest. OTHER: No other significant findings. IMPRESSION: 1. Patchy areas of gas trapping. Mild sub pleural reticulation may represent developing pulmonary fi brosis. No significant interval change. No evidence of acute cardiopulmonary disease. 2. Healed granulomatous disease. TECHNICAL DOCUMENTATION: JOB ID: [id number] Quality ID # [id number]: Final reports with documentation of one or more dose reduction techniques (e.g., Au tomated exposure control, adjustment of the mA and/or kV according to patient size, use of iterative reconstruction technique) 2010 [employer]- All Rights Reserved Reading location - IP/workstation name: [email or web address]
== END ==
LOC: RAD 14:54
PROVIDERS: ATTEND Specialist
DX: R06.00 Dyspnea, unspecified (principal)
CPT/HCPCS: 71250